=== PATIENT | male | born 1955 | race Caucasian/White ===

== ENCOUNTER 2020-02-02 14:03 | Emergency (ER) | payer SELFPAY ==
[~2020-02-02] VITALS: Ht 177.8 cm; Wt 113.4 kg
--- OUTSIDE RECORDS SUMMARY | 2020-02-02 15:44 | XMS ---
PreManage Notification: SHELTON MEDINA [employer] Associate Events No recent Security Events currently on file CRITERIA MET - [facility] - 2 Visits in 30 Days CARE PROVIDERS There are no care providers on record at this time. Haydee has no Care Guidelines for this patient. Kamran V[facility] (12 MO.) [facility] T[facility] 4 NOTE: Visits indicate total known visits. ED/C VISIT TRACKING (12 MO.) [facility]02[facility]2020 14[facility] [place] [facility] COMPLAINT: - VOMITING, ANXIETY 01/18/2020 11:09 [facility] [place] TYPE: Emergency DIAGNOSES: - Knee Pain - bilat leg numbness, lower back pain - Strain of muscle, fascia and tendon of lower back, initial en 01/16/2020 19:14 [facility] [place] TYPE: Emergency DIAGNOSES: - Panic disorder [episodic paroxysmal anxiety] - Panic Attack 11/20/2019 17:37 [facility] [place] TYPE: Emergency DIAGNOSES: - ambulance bay - Cough - Other chest pain - Chest Pain - Chills - Chest Pain/Chills, - Chest Pain/Chills INPATIENT VISIT TRACKING (12 MO.) 03[facility]19/2019 05[facility] DIAGNOSES: - Pain in right knee - Stiffness of right knee, not elsewhere classified - Presence of right artificial knee joint - Mechanical loosening of other internal prosthetic joint, init [email or web address]
[2020-02-02] MEDS ORDERED: LIPITOR20 MG PO (16:04)
[2020-02-02] MEDS ORDERED: CHLORTHALIDONE25 MG PO (16:05)
[2020-02-02] MEDS ORDERED: WELLBUTRIN XL300 MG PO (16:05)
[2020-02-02] MEDS ORDERED: VITAMIN D3250 MC2 PO (16:06)
[2020-02-02] MEDS ORDERED: NEURONTIN300 MG PO (16:06)
[2020-02-02] MEDS ORDERED: METFORMIN HCL1000 MG PO (16:07)
[2020-02-02] MEDS ORDERED: ZOLOFT50 MG PO (16:07)
[2020-02-02] MEDS ORDERED: PHENTERMINE H37.5 M1 PO (16:07)
[2020-02-02] MEDS ORDERED: TOPAMAX100 MG PO (16:08)
--- NOTE | 2020-02-03 13:20 | EKG ---
[facility] [address] [facility] [place], [place] [address] Signed Sinus rhythm with occasional premature ventricular complexes Otherwise normal ECG No previous ECGs available Confirmed by DEZ PADILLA DO ([id number]) on 02/03/2020 1:20:01 PM Electronically Signed By: DEZ PADILLA DO 02/03/20 1320 PATIENT NAME: SHELTON MEDINA JR Electrocardiogram DATE OF : 59 PHYSICIAN: DEZ PADILLA DO REPORT #: [id number] REPORT IS CONFIDENTIAL AND NOT TO BE RELEASED WITHOUT AUTHORIZATION
== END 2020-02-02 19:35 | disposition short-term general hospital (02) ==
LOC: ED 14:03
DX: R41.82 Altered mental status, unspecified (principal); E11.9 Type 2 diabetes mellitus without complications; Z88.8 Allergy status to other drugs, medicaments and biological substances; Z88.1 Allergy status to other antibiotic agents; Z79.899 Other long term (current) drug therapy; Z79.84 Long term (current) use of oral hypoglycemic drugs
CPT/HCPCS: 31500; 51702; 62270; 70450; 71045; 80053; 80176; 81001; 82550; 82803; 82945; 83605; 84157; 84443; 84484; 85025; 85032; 89051; 93005; 93010; 99285-25; G0480; J1790; J2250; J2310; J7030; J7121